=== PATIENT | male | born 1965 | race Caucasian/White ===

== ENCOUNTER 2018-12-15 17:51 | Emergency (ER) | payer SELFPAY ==
[2018-12-15 17:51] VITALS: BP 122/85; PULSE 109; RESP 15; TEMP 37.1; O2SAT 98; BMI 33.7
--- NOTE | 2018-12-15 18:08 | EKG12_ITS ---
Test Reason : CP Blood Pressure : / mmHG Vent. Rate : 114 BPM Atrial Rate : 114 BPM P-R Int : 178 ms QRS Dur : 118 ms QT Int : 328 ms P-R-T Axes : 044 067 007 degrees QTc Int : 452 ms Sinus tachycardia with occasional Premature ventricular complexes and Fusion complexes Possible Left atrial enlargement Possible Anterior infarct , age undetermined ST & T wave abnormality, consider inferior ischemia Abnormal ECG Confirmed by KD GARCIA, MOOK ([id number]), editor newspaper GOGO CALVIN ([id number]) on 12/17/2018 8:07:21 AM Referred By: JAYA Confirmed By:MOOK YI MD
--- NOTE | 2018-12-15 18:25 | ED.RN ---
PT REFUSED MORPHINE, ZOFRAN AND IVF; STATES IVF IS A PLACEBO AND CAN I HAVE A SOFTER PAIN MEDICINE. [employer] ENTERED ROOM AND PT STATES I DECLINE. INFORMED DR. LAKE AND DR. FOWLER TO ROOM TO SPEAK WITH PT. UPON ENTERING ROOM PT TAKING OFF CARDIAC LEADS AND DRESSING HIMSELF.
[2018-12-15 18:34] LABS: Absolute Lymphocyte Count 3.81 X10^3/ul (0.83-4.51); Absolute Neutrophil Count 6.1 X10^3/uL (2.0-7.7); Basophil# 0.03 X10^3/uL; Basophil% 0.3 % (0-1); Eosinophils% 1.9 % (0-5); Hematocrit 52.7 % (40-54); Hemoglobin 18.7 g/dl (13.0-16.5); Lymphocyte # 3.81 X10^3/ul (4.0); Lymphocyte % 35.5 % (19-41); Mean Corp Hgb Conc 35.5 g/gl (32-36); Mean Corpuscular Hgb 29.8 pg (27.0-32.0); Mean Corpuscular Volume 83.9 fL (80-94); Mean Platelet Vol. 9.1 fl (6.2-12.0); Monocyte# 0.57 X10^3/uL; Monocyte% 5.3 % (0-10); Neutrophil # 6.06 X10^3/uL (2.7-7.7); Neutrophil % 56.4 % (47-70); Platelet Count 221 K/mm3 (150-450); RBC Distribution Width CV 15.7 % (11.6-14.6); RBC Distribution Width SD 47.8 fl (35.1-43.9); Red Blood Count 6.28 M/mm3 (4.6-6.2); White Blood Count 10.7 K/mm3 (4.4-11.0)
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
[2018-12-15 18:35] LABS: POSITIVE COUNT NO; POSITIVE DIFFERENTIAL NO; POSITIVE MORPHOLOGY NO
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
--- NOTE | 2018-12-15 18:42 | ED.RN ---
DR. LAKE AWARE OF HEMOGLOBIN 18.7.
[2018-12-15 19:08] LABS: AST(SGOT) 82 U/L (15-37); Alanine Aminotransfer ALT/SGPT 85 U/L (16-61); Albumin, Serum 3.9 g/dL (3.2-5.0); Alkaline Phosphatase 130 U/L (45-117); Anion Gap 11 (5-15); BUN 17 mg/dL (7-18); BUN/Creat Ratio 15.9 RATIO (10-20); Calcium,Total 8.7 mg/dL (8.5-10.1); Chloride 108 mmol/L (98-107); Creatinine, Serum 1.07 mg/dL (0.70-1.30); EST Glomerular Filtration Rate 76 mL/min (>60); Est Glom Filt Rate - Afr Amer 92 mL/min (>60); Estimated Creatinine Clearance 80.54 ml/min; Globulin 3.8 g/dL (2.2-4.2); Glucose 119 mg/dL (74-106); Lipase 285 U/L (73-393); Potassium 3.9 mmol/L (3.5-5.1); Protein, Total 7.7 g/dL (6.4-8.2); Sodium Level 137 mmol/L (136-145)
== END 2018-12-15 18:45 | disposition left against medical advice (07) ==
PROVIDERS: Emergency Provider Emergency Medicine
DX: S00.01XA Abrasion of scalp, initial encounter (principal); S29.9XXA Unspecified injury of thorax, initial encounter; S39.92XA Unspecified injury of lower back, initial encounter; V89.2XXA Person injured in unspecified motor-vehicle accident, traffic, initial encounter; Y93.9 Activity, unspecified; Y92.9 Unspecified place or not applicable; Y99.9 Unspecified external cause status; Z72.0 Tobacco use; Z79.82 Long term (current) use of aspirin
CPT/HCPCS: 80053; 83690; 84484; 85025; 93005; 99285; A4216; J2405